=== PATIENT | female | born 1960 | race Caucasian/White ===

== ENCOUNTER → 2017-10-26 | Outpatient (CLI) | payer OTHER ==
[~2017-10-26] MED LIST: ACET325T14 PO; SULF1TAB24 PO; [UNRECOGNIZED DRUG - OTHER] TP
== END | disposition home or self-care (01) ==
LOC: CFH 08:40
PROVIDERS: ATTEND Obstetrics & Gynecology
DX: Z12.31 Encounter for screening mammogram for malignant neoplasm of breast (principal)
CPT/HCPCS: 77067

== ENCOUNTER 2018-07-31 13:26 | Outpatient (CLI) | payer OTHER | END 2018-07-31 23:59 | disposition home or self-care (01) | LOC: CFH 13:26 | PROVIDERS: ATTEND Internal Medicine Cardiovascular Disease | DX: I31.3 Pericardial effusion (noninflammatory) (principal); R07.9 Chest pain, unspecified; E78.5 Hyperlipidemia, unspecified; F17.200 Nicotine dependence, unspecified, uncomplicated | CPT/HCPCS: 93306 ==

== ENCOUNTER → 2020-01-17 | Outpatient (CLI) | payer OTHER | END | disposition home or self-care (01) | LOC: CFH 07:42 | PROVIDERS: ATTEND Obstetrics & Gynecology | DX: Z12.31 Encounter for screening mammogram for malignant neoplasm of breast (principal) | CPT/HCPCS: 77067 ==